=== PATIENT | male | born 1990 | race Caucasian/White ===

== ENCOUNTER 2019-02-01 14:27 | Emergency (ER) | payer OTHER ==
[2019-02-01 14:59] LABS: Basophils # (Auto) 0.1 K/mm3 (0.0-0.1); Basophils % (Auto) 0.5 % (0.0-1.8); Eosinophils # (Auto) 0.2 K/mm3 (0.0-0.4); Eosinophils % (Auto) 1.4 % (0.0-4.3); Hematocrit 42.4 % (35.5-45.6); Lymphocytes # (Auto) 2.7 K/mm3 (1.2-5.4); Lymphocytes % (Auto) 23.2 % (13.4-35.0); Mean Corpuscular HGB Conc 35 % (32-34); Mean Corpuscular Volume 91 fl (84-94); Monocytes # (Auto) 1.3 K/mm3 (0.0-0.8); Monocytes % (Auto) 10.7 % (0.0-7.3); Platelet Count 250 K/mm3 (140-440); Red Blood Count 4.67 M/mm3 (3.65-5.03); Red Cell Distribution Width 13.3 % (13.2-15.2)
[2019-02-01] MEDS ORDERED: ZOFRAN IV ONE ×2 (15:02→17:41)
[2019-02-01] MEDS ORDERED: MORPHINE IV ONE (15:02)
[2019-02-01] MEDS ORDERED: BOOSTRIX IM ONE (15:02)
--- NOTE | 2019-02-01 15:05 | Emergency Department Report ---
ED Fall HPI - General Chief Complaint: Fall Stated Complaint: TRUAMA/CT SCAN Time Seen by Provider: 02/01/19 14:45 Source: patient Mode of arrival: Ambulatory - History of Present Illness Initial Comments: 28-year-old male with a past medical history presents to the hospital complaining of left-sided pain after fall off of a 16 foot scaphoid yesterday. Patient did strike his head and had brief LOC. He went to urgent care and was sent to the ER for evaluation for abnormal chest x-ray. Patient complains of headache, mild neck pain, left-sided rib pain, and left lateral hip pain that is moderate in intensity, constant, and worse or palpation. Patient has nausea when pain is severe but denies vomiting, focal weakness, or focused numbness. - Related Data Previous Rx's Medication Instructions Recorded Last Taken Type HYDROcodone/APAP 5-325 [[place] 1 each PO Q6HR PRN #20 tablet 02/01/19 Unknown Rx 5/325] Ibuprofen [Motrin] 600 mg PO Q8H PRN #30 tablet 02/01/19 Unknown Rx Allergies Allergy/AdvReac Type Severity Reaction Status Date / Time No Known Allergies Allergy Unverified 02/01/19 14:52 ED Review of Systems ROS: Stated complaint: TRUAMA/CT SCAN Other details as noted in HPI Comment: All other systems reviewed and negative ED Past Medical Hx - Past Medical History Previous Medical History?: No - Surgical History Past Surgical History?: Yes Additional Surgical History: hernia repair - Social History Smoking Status: Current Every Day Smoker Substance Use Type: None - Medications Home Medications: Home Medications Medication Instructions Recorded Confirmed Last Taken Type HYDROcodone/APAP 5-325 [[place] 1 each PO Q6HR PRN #20 tablet 02/01/19 Unknown Rx 5/325] Ibuprofen [Motrin] 600 mg PO Q8H PRN #30 tablet 02/01/19 Unknown Rx ED Physical Exam - General Limitations: No Limitations - Other Other exam information: General: No limitations, patient is alert in no acute distress Head exam: No hematoma Eyes exam: Normal appearance, pupils equal reactive to light, extraocular movements intact ENT: Moist mucous membrane, normal oropharynx Neck exam: Normal inspection, full range of motion, no meningismus, mild paraspinous cervical muscle tenderness without isolated midline tenderness Respiratory exam: Clear to auscultation bilateral, no wheezes, rales, crackles Cardiovascular: Normal rate and rhythm, normal heart sounds, left lateral rib tenderness without ecchymosis or crepitus Abdomen: Soft, nondistended, and nontender, with normal bowel sounds, no rebound, or guarding Extremity: Full range of motion, left lateral hip contusion tender to palpation Back: Normal Inspection, full range of motion, no tenderness Neurologic: Alert, oriented x3, cranial nerves intact, no motor or sensory deficit Psychiatric: normal affect, normal mood Skin: Warm, dry, intact ED Course Vital Signs 02/01/19 14:49 Temperature 98.6 F Pulse Rate 64 Respiratory 16 Rate Blood Pressure 117/72 [Left] O2 Sat by Pulse 98 Oximetry ED Medical Decision Making - Lab Data Result diagrams: 02/01/19 14:50 02/01/19 14:50 Lab Results 02/01/19 02/01/19 02/01/19 Range/Units 14:50 14:50 14:50 WBC 11.8 H (4.5-11.0) K/mm3 RBC 4.67 (3.65-5.03) M/mm3 Hgb 15.0 (11.8-15.2) gm/dl Hct 42.4 (35.5-45.6) % MCV 91 (84-94) fl MCH 32 (28-32) pg MCHC 35 H (32-34) % RDW 13.3 (13.2-15.2) % Plt Count 250 (140-440) K/mm3 Lymph % (Auto) 23.2 (13.4-35.0) % [place] % (Auto) 10.7 H (0.0-7.3) % Eos % (Auto) 1.4 (0.0-4.3) % Baso % (Auto) 0.5 (0.0-1.8) % Lymph # 2.7 (1.2-5.4) K/mm3 [place] # 1.3 H (0.0-0.8) K/mm3 Eos # 0.2 (0.0-0.4) K/mm3 Baso # 0.1 (0.0-0.1) K/mm3 Seg Neutrophils % 64.2 (40.0-70.0) % Seg Neutrophils # 7.5 (1.8-7.7) K/mm3 PT 14.3 (12.2-14.9) Sec. INR 1.05 (0.87-1.13) APTT 30.9 (24.2-36.6) Sec. Sodium 140 (137-145) mmol/L Potassium 4.1 (3.6-5.0) mmol/L Chloride 104.9 (98-107) mmol/L Carbon Dioxide 21 L (22-30) mmol/L Anion Gap 18 mmol/L BUN 10 (9-20) mg/dL Creatinine 0.7 L (0.8-1.5) mg/dL Estimated GFR > 60 ml/min BUN/Creatinine Ratio 14 % Glucose 96 (75-100) mg/dL Calcium 8.6 (8.4-10.2) mg/dL - Radiology Data Radiology results: report reviewed PROCEDURE: XR CHEST 1V AP TECHNIQUE: Single AP view of the chest HISTORY: PAIN AFTER FALL COMPARISONS: None available FINDINGS: Normal cardiomediastinal silhouette. There is linear platelike atelectasis at the left lung base. No acu te infiltrate, effusion, or pneumothorax IMPRESSION: Left lung base linear/platelike atelectasis. PROCEDURE: XR HIP 2-3V LT TECHNIQUE: AP view the pelvis and frog-leg lateral view of the left hip were obtained. HISTORY: Pain after fall. COMPARISONS: None available. FINDINGS: Osseous mineralization. No acute fracture, dislocation or significant degenerative change. Marked soft tissue swelling about the left hip, greater trochanter. IMPRESSION: Marked left hip peritrochanteric soft tissue swelling consistent with soft tissue injury. There is no acute fracture or dislocation. PROCEDURE: CT head without contrast. TECHNIQUE: Computerized tomography of the head was performed without contrast material. CT DOSE LENGTH PRODUCT: Not provided mGycm HISTORY: mtz, syncope after 16 foot fall COMPARISONS: None. FINDINGS: The ventricles are normal in size. The keene matter and white matter appear normal. There are no mass lesions. There is no intracranial hemorrhage. The calvarium appears intact. The mastoid air cells are clear. There is mild mucosal thickening in a couple of the ethmoid air cells. IMPRESSION: Normal study of the brain. PROCEDURE: CT CERVICAL SPINE WO CON TECHNIQUE: Spiral imaging of the cervical spine is obtained without IV contrast. Sagittal and coronal reconstructions were created and displayed for review. HISTORY: neck pain after 16 foot fall COMPARISONS: None FINDINGS: No fracture or subluxation is seen. Bone density appears normal. The prevertebral soft tissues appear normal. Posterior elements are intact. Disc spaces are well maintained. No focal disc herniation or spinal stenosis is visualized. IMPRESSION: Negative exam. No fracture or subluxation is visualized.. PROCEDURE: CT CHEST WO CON TECHNIQUE: Spiral imaging of the chest was obtained without IV contrast. Computer generated coronal and sagittal reconstructions were created HISTORY: left rib pain after 16 foot fall COMPARISONS: None FINDINGS: Pericardium: No evidence of pericardial effusion. Thoracic aorta: No evidence of aneurysmal dilatation or dissection. Coronary arteries: Unremarkable. Mediastinum and hilar regions: Non specific subcentimeter lymph nodes are visualized. No pathologically enlarged lymph nodes or masses are identified. Lung Mcintosh: Small amount of dependent atelectasis visualized bilaterally. There is a rounded pleural-based density with linear bands of increased density extending into the left lower lobe. The pleural-based portion measures 1.7 x 1.4 cm. The shape suggests the possibility of rounded atelectasis. This could represent a contusion given the patient's fall. Pleural- based mass not entirely excluded. Lungs otherwise are clear. There is a small amount of fluid collecting dependently in the right mainstem bronchus. Upper abdomen: No acute or focal abnormality is seen. Other: No acute bone abnormalities are seen. No displaced rib fractures are identified. IMPRESSION: No displaced rib fractures or pneumothorax visualized. Small amount of dependent atelectasis visualized. Minimal pleural-based density left lower lobe as described. As indicated above the shape suggests the possibility of rounded atelectasis. This could represent a contusion given the patient's trauma history. Pleural-based mass not entirely excluded. Short-term follow-up exam recommended 1-2 months to ensure this resolves. - Medical Decision Making Patient brought in as a code trauma. Vital signs stable. Patient treated with Toradol, tetanus, morphine, and Zofran Dilaudid 0.5mg prior to d/c for return in some pain incentive spirometer with teaching for lung atelectasis - Differential Diagnosis fracture, contusion, sprain, ICH Critical Care Time: No Critical care attestation.: If time is entered above; I have spent that time in minutes in the direct care of this critically ill patient, excluding procedure time. ED Disposition Clinical Impression: Fall, Head injury, closed, with brief LOC, Contusion of left hip, Contusion of left chest wall Disposition: DC-01 TO HOME OR SELFCARE Is pt being admited?: No Does the pt Need Aspirin: No Condition: Stable Instructions: Contusion in Adults (ED), Pulmonary Contusion (ED), Minor Head Injury (ED) Additional Instructions: Take the medication as prescribed. Follow up with your doctor or the clinic/doctor provided. Return if symptoms worsen as indicated by your discharge instructions Halchita la medicacin segn lo prescrito. Robin un seguimiento con [place] mdico o la clnica / mdico proporcionado. Regrese si los sntomas empeoran terri lo indican lissette instrucciones de philip. Prescriptions: Ibuprofen [Motrin] 600 mg PO Q8H PRN #30 tablet PRN Reason: Pain HYDROcodone/APAP 5-325 [[place] 5/325] 1 each PO Q6HR PRN #20 tablet PRN Reason: Pain Referrals: PERICO HINSON MD [Primary Care Provider] - 3-5 Days Print Language: MOHAWK
[2019-02-01] MEDS ORDERED: TORADOL IV ONE (15:07)
[2019-02-01 15:10] LABS: BUN/Creatinine Ratio 14; Blood Urea Nitrogen 10 mg/dL (9-20); Calcium 8.6 mg/dL (8.4-10.2); Hemolysis Index 39; INR 1.05 (0.87-1.13)
[2019-02-01 15:11] LABS: Partial Thromboplastin Time 30.9 Sec. (24.2-36.6)
--- NOTE | 2019-02-01 16:16 | Cat Scan Report ---
PROCEDURE: CT CERVICAL SPINE WO CON TECHNIQUE: Spiral imaging of the cervical spine is obtained without IV contrast. Sagittal and hood l reconstructions were created and displayed for review. HISTORY: neck pain after 16 foot fall COMPARISONS: None FINDINGS: No fracture or subluxation is seen. Bone density appears normal. The prevertebral soft tissues appear normal. Posterior elements are intact. Disc spaces are well maintained. No focal disc herniation or spinal stenosis is visualized. IMPRESSION: Negative exam. No fracture or subluxation is visualized.. This document is electronically signed by Jaguar Desir MD., February 01 2019 04:14:19 PM ET
--- NOTE | 2019-02-01 16:17 | XRay Report ---
PROCEDURE: XR CHEST 1V AP TECHNIQUE: Single AP view of the chest HISTORY: PAIN AFTER FALL COMPARISONS: None available FINDINGS: Normal cardiomediastinal silhouette. There is linear platelike atelectasis at the left lung base. No acute infiltrate, effusion, or pneumothorax IMPRESSION: Left lung base linear/platelike atelectasis. This document is electronically signed by Dede Brian MD., February 01 2019 04:15:16 PM ET
--- NOTE | 2019-02-01 16:26 | Cat Scan Report ---
PROCEDURE: CT CHEST WO CON TECHNIQUE: Spiral imaging of the chest was obtained without IV contrast. Computer generated coronal and sagittal reconstructions were created HISTORY: left rib pain after 16 foot fall COMPARISONS: None FINDINGS: Pericardium: No evidence of pericardial effusion. Thoracic aorta: No evidence of aneurysmal dilatation or dissection. Coronary arteries: Unremarkable. Mediastinum and hilar regions: Non specific subcentimeter lymph nodes are visualized. No pathologica lly enlarged lymph nodes or masses are identified. Lung Mcintosh: Small amount of dependent atelectasis visualized bilaterally. There is a rounded pleural -based density with linear bands of increased density extending into the left lower lobe. The pleural -based portion measures 1.7 x 1.4 cm. The shape suggests the possibility of rounded atelectasis. This could represent a contusion given the patient's fall. Pleural-based mass not entirely excluded. Lung s otherwise are clear. There is a small amount of fluid collecting dependently in the right mainstem bronchus. Upper abdomen: No acute or focal abnormality is seen. Other: No acute bone abnormalities are seen. No displaced rib fractures are identified. IMPRESSION: No displaced rib fractures or pneumothorax visualized. Small amount of dependent atelectasis visualized. Minimal pleural-based density left lower lobe as described. As indicated above the shape suggests the possibility of rounded atelectasis. This could represent a contusion given the patient's trauma hist ory. Pleural-based mass not entirely excluded. Short-term follow-up exam recommended 1-2 months to en sure this resolves. This document is electronically signed by Jaguar Desir MD., February 01 2019 04:24:29 PM ET
--- NOTE | 2019-02-01 16:29 | Cat Scan Report ---
PROCEDURE: CT head without contrast. TECHNIQUE: Computerized tomography of the head was performed without contrast material. CT DOSE LENGTH PRODUCT: Not provided mGycm HISTORY: mtz, syncope after 16 foot fall COMPARISONS: None. FINDINGS: The ventricles are normal in size. The keene matter and white matter appear normal. There are no mass lesions. There is no intracranial hemorrhage. The calvarium appears intact. The mastoid air cells are clear. There is mild mucosal thickening in a couple of the ethmoid air cells. IMPRESSION: Normal study of the brain. This document is electronically signed by Maurisio Dixon MD., February 01 2019 04:27:31 PM ET
--- NOTE | 2019-02-01 16:50 | XRay Report ---
PROCEDURE: XR HIP 2-3V LT TECHNIQUE: AP view the pelvis and frog-leg lateral view of the left hip were obtained. HISTORY: Pain after fall. COMPARISONS: None available. FINDINGS: Osseous mineralization. No acute fracture, dislocation or significant degenerative change. Marked soft tissue swelling about the left hip, greater trochanter. IMPRESSION: Marked left hip peritrochanteric soft tissue swelling consistent with soft tissue injury. There is no acute fracture or dislocation. This document is electronically signed by Foster Ludwig DO., February 01 2019 04:48:07 PM ET
[2019-02-01] MEDS ORDERED: DILAUDID IV ONE (17:41)
[2019-02-01 17:56] VITALS: BP 105/60
== END 2019-02-01 17:58 | disposition home or self-care (01) ==
LOC: ED 14:27
DX: S70.02XA Contusion of left hip, initial encounter (principal); S20.212A Contusion of left front wall of thorax, initial encounter; S06.9X9A Unspecified intracranial injury with loss of consciousness of unspecified duration, initial encounter; W19.XXXA Unspecified fall, initial encounter; F17.200 Nicotine dependence, unspecified, uncomplicated; Y93.89 Activity, other specified; Y92.89 Other specified places as the place of occurrence of the external cause; Y99.8 Other external cause status
CPT/HCPCS: 36415; 70450; 71045; 71250; 72125; 73502; 80048; 85025; 85610; 85730; 90471; 90715; 96374; 96375; 96376; 99284; J1170; J1885; J2270; J2405